=== PATIENT | male | born 1965 | race Caucasian/White ===

== ENCOUNTER 2024-11-24 08:39 | Emergency (ER) | payer OTHER, MEDICARE, MEDICAID, SELFPAY ==
--- NOTE | ~2024-11-24 | CT_ITS ---
CT of the Abdomen and Pelvis: Indication: Trauma Technique: 2.5 mm axial scans were obtained through the abdomen and pelvis following intravenous adm inistration of 100 cc of Omnipaque 350. Dose reduction technique was used on this scan by utilizing a utomated exposure control and iterative reconstruction technique. The dose-length product (DLP) was 1 514.56 mGy-cm. Findings: Scans through the lung bases are unremarkable. Small hepatic cysts present. The spleen, pancreas, gallbladder, adrenals and right kidney are within normal limits. 1.2 x 0.5 cm nonobstructing left renal stone present. There is focal cortical calcific ation left kidney as well. No evidence of aortic aneurysm. No lymphadenopathy. There is a large hernia just left of midline at the level of the umbilicus containing several small b owel loops and mesenteric fat. No bowel obstruction or bowel wall thickening. Images through the pelvis were performed. Urinary bladder unremarkable. No pelvic mass seen. No ascit es. Impression: Ventral hernia just left of midline at the umbilicus containing several small bowel loops and mesente jason fat. No bowel obstruction or bowel wall thickening. 1.2 x 0.5 cm nonobstructing left renal stone. Reviewed, dictated and finalized at [facility]. Impression: Ventral hernia just left of midline at the umbilicus containing several small b owel loops and mesenteric fat. No bowel obstruction or bowel wall thickening. 1.2 x 0.5 cm nonobstructing left renal stone.
--- NOTE | ~2024-11-24 | XR_ITS ---
XR shoulder LT min 2V 11/24/2024 10:11 Indication: Left shoulder trauma Procedure: 4 views left shoulder Comparison: No prior studies for comparison. Findings: There is a left total shoulder arthroplasty. No fracture, subluxation or dislocation. No so ft tissue abnormality. No foreign bodies. Impression: 1: No acute bone or joint abnormality. Reviewed, dictated and finalized at location [facility]. Impression: 1: No acute bone or joint abnormality.
--- NOTE | ~2024-11-24 | XR_ITS ---
XR hand LT min 3V 11/24/2024 10:11 Indication: Left third finger pain Procedure: 3 views left hand Comparison: No prior studies for comparison. Findings: There is a fracture dorsal base of the third middle phalanx. There is side plate and screws transfixing the third proximal phalanx. Mild soft tissue swelling. 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 Impression: 1: Acute displaced fracture dorsal base left fifth middle phalanx. Reviewed, dictated and finalized at location [facility]. Impression: 1: Acute displaced fracture dorsal base left fifth middle phalanx.
[2024-11-24 08:44] VITALS: BP 153/73; PULSE 79; RESP 16; TEMP 36.8; O2SAT 98
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
--- OUTSIDE RECORDS SUMMARY | 2024-11-24 09:22 | XMS_ITS | Clinical Summary ---
Author Organization [facility] Address [address] [place] [address] Care Team Providers Care House Rn Name Role Phone Unavailable Primary Care Provider Unavailabl e Source Comments [facility],non-owned Affiliates and Associated Physician Practices is amultiple site organization consisting of ambulatory clinics and hospital sitesin [place], [place], [place] and [place]. This disclosure is being madepursuant to the Care Everywhere program and may not contain all information available regarding this patient. Last updated 18.[facility] Allergies No known active allergies Medications * Be aware that medications may not be up to date on this document. Alwaysverify current medications with the patient. hydrocodone-vanessa taminophen (NORCO) 5-325 mg 5-325 mg half tabletIndicatio ns:Take 2 Tabs by nouth every four hours as needed for pain Take 2 Tabs by mouth every 4 hours as needed. Indications: Take 2 Tabs by nouth every four hours as needed for pain Active cephALEXin (KEFLEX) 500 MG capsuleIndicati ons:Take one capsule by mouth four times daily until gone. Take 500 mg by mouth 4 times daily. Indications: Take one capsule by mouth four times daily until gone. 02/16/2010 Active divalproex ER 24hr (DEPAKOTE ER) 500 MG tabletIndicatio ns:Take four Tablets by mouth twice a day Take 2,000 mg by mouth 2 times daily. Indications: Take four Tablets by mouth twice a day 02/21/2010 Active levetiracetam (KEPPRA) 750 MG tabletIndicatio ns:Take two tabletys twice Daily Take 1,500 mg by mouth 2 times daily. Indications: Take two tabletys twice Daily Active atorvastatin (LIPITOR) 10 MG tablet Take 10 mg by mouth at bedtime. Active celecoxib (CELEBREX) 200 MG capsule Take 1 Cap by mouth 2 times daily. 60 Cap 0 02/23/2010 Active esomeprazole (NEXIUM) 40 MG capsule Take 1 Cap by mouth daily before breakfast. 30 Cap 0 02/23/2010 Active Active Problems No known active problems Resolved Problems Problem Noted Date Diagnosed Date Resolved Date Chest pain 02/21/2010 02/23/2010 Immunizations Immunization Administration Dates Next Due INFLUENZA VACCINE 02/23/2010 Social History Tobacco Use Types Packs/Day Years Used Date Smoking Tobacco: Never Assessed Sex and Gender Information Value Date Recorded Sex Assigned at Not on file Legal Sex Male 5:24 AM [employer] Gender Identity Not on file Sexual Orientation Not on file Last Filed Vital Signs Vital Sign Reading Time Taken Comments Blood Pressure 141/80 02/23/2010 11:39 AM CDT Pulse 76 02/23/2010 11:39 AM CDT Temperature 36.5 C (97.7 F) 02/23/2010 11:39 AM CDT Respiratory Rate 18 02/23/2010 11:39 AM CDT Oxygen Saturation 96% 02/23/2010 11:39 AM CDT Inhaled Oxygen Concentration - - Weight 104.3 kg (230 lb) 02/21/2010 3:00 AM CDT Height 177.8 cm (5' 10) 02/21/2010 3:00 AM CDT Body Mass Index 33 02/21/2010 3:00 AM CDT Plan of Treatment Health Maintenance Due Date Last Done Comments COLOGUARD (AGES 45-75) - COL ON CA SCREENING 1967 COLON MONITORING 1967 COLONOSCOPY - COLON CA SCREENING 1967 CT COLONOGRAPHY - COLON CA SCREENING 1967 Colorectal Cancer Screening 1967 FIT - COLON CA SCREENING 1967 FLEX SIG - COLON CA SCREENING 1967 HIV SCREENING 1982 HEPATITIS C SCREENING 03/16/1985 DTAP/TDAP/TD VACCINES (1 - Tdap) 1986 HEPATITIS B VACCINE (1 of 3 - 19+ 3-dose series) 1986 PNEUMOCOCCAL VACCINE 50+ (1 of 1 - PCV) 2017 ZOSTER VACCINE (1 of 2) 2017 COVID-19 VACCINE (1 - 2023-2 5 season) 2024 DEPRESSION SCREENING 06/08/2024 INFLUENZA VACCINE (Season Ended) 2025 02/24/20 10 HIB VACCINE Aged Out No longer eligi ble based on patient's age to complete this topic HPV VACCINE Aged Out No longer eligi ble based on patient's age to complete this topic MENINGOCOCCAL (Group B) VACC INE SHARED DECISION-MAKING Aged Out No longer eligibl e based on patient's age to complete this topic MENINGOCOCCAL GROUPS A/C/Y/W VACCINE Aged Out No longer eligible b ased on patient's age to complete this topic Advance Directives * Full Code (Latest Code Status on File) Date Activated Date Inactivated Comments 02/21/2010 12:16 PM 02/24/2010 3:16 AM
[2024-11-24] MEDS: MORPHINE SULFATE (*CRX) 2 MG/ML INJ IV PUSH (09:27)
[2024-11-24] MEDS: ONDANSETRON INJ 4 MG/2 ML VIAL IV PUSH (09:27)
[2024-11-24 09:46] LABS: Basophils Absolute Auto 0.1 K/mm3 (0.0-0.1); Basophils Percent Auto 0.6 % (0.2-1.2); Eosinophils Absolute Auto 0.4 K/mm3 (0-0.3); Eosinophils Percent Auto 4.6 % (0-4.4); Hematocrit 38.6 % (42.0-52.0); Hemoglobin 12.8 g/dL (14.0-18.0); Immature Granulocyte Absolute 0.03 K/mm3 (0.00-0.031); Immature Granulocyte Percent A 0.4 % (0-0.5); Lymphocytes Absolute Auto 1.96 K/mm3 (0.9-3.2); Lymphocytes Percent Auto 23.9 % (18.3-44.2); Mean Corpuscular HGB Conc 33.2 g/dl (32-36); Mean Corpuscular Hemoglobin 27.2 pg (26-34); Mean Corpuscular Volume 82.1 fl (80-100); Mean Platelet Volume 9.8 fl (7.4-10.4); Monocytes Absolute Auto 0.8 K/mm3 (0.1-0.6); Neutrophils Percent Auto 60.5 % (45.5-73.1); Platelet Count Result 177 k/mm3 (150-375); Red Cell Distribution Width 13.9 % (11.5-14.5); White Blood Count 8.2 K/mm3 (4.5-10.0)
[2024-11-24 09:54] LABS: Alanine Aminotransferase 19 U/L (6-50); Albumin Level 4.2 g/dL (3.5-5.1); Alkaline Phosphatase 103 U/L (38-126); Anion Gap 7 mmol/L (4-12); Aspartate Amino Transferase 29 U/L (17-59); Bilirubin,Total 0.5 mg/dL (0.2-1.3); Blood Urea Nitrogen 17 mg/dL (9-20); Carbon Dioxide 26 mmol/L (22-30); Chloride 104 mmol/L (98-107); Estimated CRCL calculation 96 ml/min; Estimated Glomerular Filt Rate > 60; Glucose 108 mg/dL (65-110); Lipase 60 U/L (23-300); Potassium 4.1 mmol/L (3.4-5.0); Sodium 137 mmol/L (137-145)
[2024-11-24 09:56] LABS: INR 1.1; Prothrombin Time 13.9 Seconds (11.1-14.7)
[2024-11-24 09:57] LABS: Partial Thromboplastin Time 29.2 Seconds (22.3-36.8)
== END 2024-11-24 11:56 | disposition home or self-care (01) ==
PROVIDERS: Emergency Provider Emergency Medicine
DX: S62.627A Displaced fracture of middle phalanx of left little finger, initial encounter for closed fracture (principal); K43.9 Ventral hernia without obstruction or gangrene; N20.0 Calculus of kidney; V43.62XA Car passenger injured in collision with other type car in traffic accident, initial encounter
CPT/HCPCS: 29130; 36415; 73030; 73130; 74177; 80053; 83690; 85025; 85610; 85730; 96374; 96375; 99284; J2270; J2405; Q9967